=== PATIENT | female | born 1970 | race Two or more races ===

== ENCOUNTER 2017-08-14 16:36 | Inpatient (IN) | payer OTHER ==
[~2017-08-14] VITALS: Ht 152.4 cm; Wt 70.8 kg
[2017-08-14] MEDS ORDERED: HEPARIN SODIUM (PORCINE) 5000 UNITS/ML 1ML VIAL IV ONE (21:00)
[2017-08-14] MEDS ORDERED: SODIUM CHLORIDE 0.9% 1,000 ML IV ONE (21:00)
[2017-08-14 21:28] LABS: Basophils # (auto) 0 uL; Basophils % (auto) 0.3 % (0.0-2.0); Eosinophils # (auto) 0.2 uL; Hematocrit 36.3 % (36.0-46.0); Lymphocytes # (auto) 2.1 uL; Lymphocytes % (auto) 26.6 % (10.0-50.0); Mean Corpuscular Hemoglobin 28.4 pg (28.0-32.0); Mean Corpuscular Volume 86.1 fL (80.0-100.0); Monocytes # (auto) 0.8 uL; Neutrophils # (auto) 4.8 uL; Neutrophils % (auto) 60.1 % (37.0-80.0); Nucleated Red Blood Cells % 0.1 %; Platelet Count (auto) 265 10^3/uL (140-450); Red Blood Cells 4.21 10^6/uL (4.0-5.20); Red Cell Distribution Width 12.4 % (11.8-14.3)
[2017-08-14 21:38] LABS: Albumin 2.6 g/dL (3.4-5.0); BUN/Creatinine Ratio 18.8; Bilirubin, Total 0.4 mg/dL (0.2-1.0); Calcium 7.3 mg/dL (8.5-10.1); Potassium 3.5 mmol/L (3.5-5.1); Total Protein 6.7 g/dL (6.4-8.2)
[2017-08-14 21:46] LABS: INR 0.9 (0.9-1.15); Partial Thromboplastin Time 27.3 sec (22.64-33.71); Prothrombin Time 9.8 sec (9.37-12.3)
[2017-08-14] MEDS ORDERED: IOHEXOL 350 MG/ML 100ML IJ ONE (23:42)
[2017-08-15] VITALS (8 sets, daily range): BP systolic 99–136; BP diastolic 62–89
[2017-08-15] MEDS ORDERED: MORPHINE SULF INJ 2 MG/ML SYRINGE 1ML IV PRN
[2017-08-15] MEDS ORDERED: ACETAMINOPHEN 500 MG TAB PO PRN
[2017-08-15] MEDS ORDERED: ONDANSETRON HCL 4 MG/2 ML VIAL ONE (00:41)
[2017-08-15] MEDS: HYDROcodone-ACET 5/325MG TAB PO PRN ×3 (00:58→18:58)
[2017-08-15] MEDS ORDERED: ONDANSETRON HCL 4 MG/2 ML VIAL IV ONE (01:00)
[2017-08-15] MEDS: HEPARIN DRIP/D5W 100UNITS/ML 250 ML IV SCH ×2 (03:11→21:33)
[2017-08-15] MEDS ORDERED: CEPH750C6 PO (04:24)
[2017-08-15] MEDS ORDERED: CYCL1TAB18 PO (04:28)
[2017-08-15] MEDS ORDERED: HYDR-4683 PO (04:28)
[2017-08-15] MEDS ORDERED: DOCU-94 PO (04:28)
[2017-08-15] MEDS ORDERED: TRIA0.25 PO (04:29)
[2017-08-15 06:44] LABS: BUN/Creatinine Ratio 21.2; Potassium 3.4 mmol/L (3.5-5.1)
[2017-08-15 07:29] LABS: Basophils # (auto) 0 uL; Basophils % (auto) 0.4 % (0.0-2.0); Eosinophils # (auto) 0.3 uL; Eosinophils % (auto) 3.7 % (0.0-7.0); Hematocrit 32.8 % (36.0-46.0); Hemoglobin 10.7 g/dL (12.2-16.2); Lymphocytes # (auto) 2.3 uL; Lymphocytes % (auto) 32.8 % (10.0-50.0); Mean Corpuscular Hemoglobin 28.4 pg (28.0-32.0); Mean Corpuscular Hgb Conc. 32.6 g/dL (32.0-36.0); Mean Corpuscular Volume 87.2 fL (80.0-100.0); Monocytes # (auto) 0.7 uL; Monocytes % (auto) 9.8 % (0.0-12.0); Neutrophils # (auto) 3.7 uL; Neutrophils % (auto) 53.3 % (37.0-80.0); Nucleated Red Blood Cells % 0.1 %; Platelet Count (auto) 232 10^3/uL (140-450); Red Blood Cells 3.76 10^6/uL (4.0-5.20); Red Cell Distribution Width 12.6 % (11.8-14.3)
[2017-08-15 07:44] LABS: INR 0.97 (0.9-1.15); Prothrombin Time 10.6 sec (9.37-12.3)
[2017-08-15 09:26] LABS: INR 0.95 (0.9-1.15); Partial Thromboplastin Time 69.3 sec (22.64-33.71); Prothrombin Time 10.3 sec (9.37-12.3)
[2017-08-15] MEDS ORDERED: APIXABAN 5 MG TAB PO SCH (10:00)
[2017-08-15] MEDS ORDERED: CEPHALEXIN 250 MG CAP PO ONE (12:00)
[2017-08-15 15:26] LABS: INR 0.93 (0.9-1.15); Partial Thromboplastin Time 63.6 sec (22.64-33.71); Prothrombin Time 10.1 sec (9.37-12.3)
[2017-08-15] MEDS: PANTOPRAZOLE 40 MG TAB PO SCH (16:26)
[2017-08-15] MEDS: DOCUSATE SOD 100 MG CAP PO SCH (16:27)
[2017-08-15] MEDS: CYCLOBENZAPRINE HCL 10 MG TAB PO PRN (16:27)
[2017-08-15 21:26] LABS: INR 0.95 (0.9-1.15); Prothrombin Time 10.3 sec (9.37-12.3)
[2017-08-15] MEDS: CEPHALEXIN 250 MG CAP PO SCH (21:43)
[2017-08-16] MEDS: CEPHALEXIN 250 MG CAP PO SCH ×3 (05:31→21:26)
[2017-08-16 05:35] VITALS: BP 101/61
[2017-08-16 08:00] VITALS: BP 123/78
[2017-08-16 08:28] LABS: BUN/Creatinine Ratio 13.8; Basophils # (auto) 0 uL; Basophils % (auto) 0.4 % (0.0-2.0); Calcium 8.6 mg/dL (8.5-10.1); Eosinophils # (auto) 0.2 uL; Hematocrit 35.7 % (36.0-46.0); Hemoglobin 11.9 g/dL (12.2-16.2); Lymphocytes # (auto) 1.9 uL; Lymphocytes % (auto) 25.4 % (10.0-50.0); Magnesium 2.5 mg/dL (1.6-2.6); Mean Corpuscular Hemoglobin 28.6 pg (28.0-32.0); Mean Corpuscular Hgb Conc. 33.3 g/dL (32.0-36.0); Mean Corpuscular Volume 85.8 fL (80.0-100.0); Monocytes # (auto) 0.6 uL; Monocytes % (auto) 8.4 % (0.0-12.0); Neutrophils # (auto) 4.7 uL; Neutrophils % (auto) 62.8 % (37.0-80.0); Platelet Count (auto) 303 10^3/uL (140-450); Potassium 3.8 mmol/L (3.5-5.1); Red Blood Cells 4.16 10^6/uL (4.0-5.20); Red Cell Distribution Width 12.4 % (11.8-14.3); White Blood Cell 7.5 10^3/uL (4.4-10.8)
[2017-08-16 08:47] LABS: INR 0.95 (0.9-1.15); Prothrombin Time 10.4 sec (9.37-12.3)
[2017-08-16 08:59] LABS: Partial Thromboplastin Time 101.8 sec (22.64-33.71)
[2017-08-16 09:03] VITALS: BP 123/78
[2017-08-16] MEDS: CYCLOBENZAPRINE HCL 10 MG TAB PO PRN (09:17)
[2017-08-16] MEDS: PANTOPRAZOLE 40 MG TAB PO SCH (09:17)
[2017-08-16] MEDS: DOCUSATE SOD 100 MG CAP PO SCH ×2 (09:17→21:26)
[2017-08-16 11:00] LABS: Urine Bacteria NONE SEEN /hpf (None Seen); Urine Blood Negative /uL (Negative); Urine Specific Gravity 1.004 (1.001-1.035); Urine WBC 1 /hpf (0 - 5)
[2017-08-16 15:35] LABS: INR 0.95 (0.9-1.15); Partial Thromboplastin Time 41.8 sec (22.64-33.71); Prothrombin Time 10.3 sec (9.37-12.3)
[2017-08-16 17:00] VITALS: BP 131/89
[2017-08-16] MEDS ORDERED: HEPARIN DRIP/D5W 100UNITS/ML 250 ML IV SCH (17:00)
[2017-08-16 22:00] VITALS: BP 116/75
[2017-08-17 05:00] VITALS: BP 116/73
[2017-08-17] MEDS: CEPHALEXIN 250 MG CAP PO SCH (05:34)
[2017-08-17 06:46] LABS: Basophils # (auto) 0 uL; Basophils % (auto) 0.6 % (0.0-2.0); Eosinophils # (auto) 0.2 uL; Eosinophils % (auto) 3.2 % (0.0-7.0); Hematocrit 34.5 % (36.0-46.0); Hemoglobin 11.4 g/dL (12.2-16.2); Lymphocytes # (auto) 2.1 uL; Lymphocytes % (auto) 30.7 % (10.0-50.0); Mean Corpuscular Hemoglobin 28.4 pg (28.0-32.0); Mean Corpuscular Hgb Conc. 33.2 g/dL (32.0-36.0); Mean Corpuscular Volume 85.7 fL (80.0-100.0); Monocytes # (auto) 0.6 uL; Monocytes % (auto) 9.4 % (0.0-12.0); Neutrophils # (auto) 3.8 uL; Neutrophils % (auto) 56.1 % (37.0-80.0); Platelet Count (auto) 288 10^3/uL (140-450); Red Blood Cells 4.03 10^6/uL (4.0-5.20); Red Cell Distribution Width 12.5 % (11.8-14.3); White Blood Cell 6.8 10^3/uL (4.4-10.8)
[2017-08-17 07:00] LABS: INR 0.96 (0.9-1.15); Partial Thromboplastin Time 59.7 sec (22.64-33.71); Prothrombin Time 10.5 sec (9.37-12.3)
[2017-08-17 07:02] LABS: Calcium 8.4 mg/dL (8.5-10.1); Magnesium 2.5 mg/dL (1.6-2.6); Potassium 3.6 mmol/L (3.5-5.1)
[2017-08-17 09:00] VITALS: BP 141/93
[2017-08-17] MEDS: DOCUSATE SOD 100 MG CAP PO SCH (09:43)
[2017-08-17] MEDS: PANTOPRAZOLE 40 MG TAB PO SCH (09:43)
[2017-08-17 10:02] VITALS: BP 130/75
[2017-08-17] MEDS ORDERED: RIVAROXABAN 15 MG TAB PO ONE (10:15)
[2017-08-17 13:00] VITALS: BP 149/87
[2017-08-22] MEDS ORDERED: APIXABAN 5 MG TAB PO SCH (10:00)
== END 2017-08-17 14:00 | disposition home or self-care (01) | DRG 299 ==
LOC: ER 16:36 → OVERFLOW 16:37 → WEST WING 08-15 01:42
PROVIDERS: ADMIT Nurse Practitioner Family; ATTEND Internal Medicine
DX: I82.412 Acute embolism and thrombosis of left femoral vein (principal); I26.99 Other pulmonary embolism without acute cor pulmonale; E66.01 Morbid (severe) obesity due to excess calories; I82.432 Acute embolism and thrombosis of left popliteal vein; I82.442 Acute embolism and thrombosis of left tibial vein; Z68.30 Body mass index [BMI] 30.0-30.9, adult; Z98.51 Tubal ligation status
CPT/HCPCS: 36415; 71045; 71275; 80048; 80053; 81001; 83735; 85025; 85610; 85730; 93971; 96374; J2405

== ENCOUNTER 2021-09-17 17:45 | Inpatient (IN) | payer OTHER ==
[~2021-09-17] VITALS: Ht 152.4 cm; Wt 72.1 kg
[~2021-09-17 17:45] MED LIST: CEPH750C6 PO; CYCL-839 PO; DOCU-94 PO; HYDR-4833 PO; TRIA0.25 PO
[2021-09-17] MEDS ORDERED: SODIUM CHLORIDE 0.9% 500 ML IVB ONE (19:00)
[2021-09-17] MEDS ORDERED: MORPHINE SULFATE 4 MG/ML SYR/VIAL IV ONE (19:00)
[2021-09-17] MEDS ORDERED: ONDANSETRON HCL 4 MG/2 ML VIAL IV ONE (19:00)
[2021-09-17 19:54] LABS: Basophils # (auto) 0 10 ^3/uL (0-0.2); Basophils % (auto) 0.3 % (0.0-2.0); Eosinophils # (auto) 0.1 10 ^3/uL (0-0.8); Eosinophils % (auto) 1.4 % (0.0-7.0); Hematocrit 39.3 % (36.0-46.0); Hemoglobin 13.5 g/dL (12.2-16.2); Lymphocytes # (auto) 3.3 10 ^3/uL (0.4-5.4); Lymphocytes % (auto) 34.3 % (10.0-50.0); Mean Corpuscular Hemoglobin 29.2 pg (28.0-32.0); Mean Corpuscular Hgb Conc. 34.4 g/dL (32.0-36.0); Mean Corpuscular Volume 84.9 fL (80.0-100.0); Monocytes # (auto) 0.7 10 ^3/uL (0-1.3); Monocytes % (auto) 7.3 % (0.0-12.0); Neutrophils # (auto) 5.4 10 ^3/uL (1.6-8.6); Neutrophils % (auto) 56.7 % (37.0-80.0); Red Blood Cells 4.63 10^6/uL (4.0-5.20); Red Cell Distribution Width 12.7 % (11.8-14.3); White Blood Cell 9.5 10^3/uL (4.4-10.8)
[2021-09-17 19:57] LABS: Albumin 3.7 g/dL (3.4-5.0); Calcium 8.9 mg/dL (8.5-10.1); Potassium 3.7 mmol/L (3.5-5.1)
[2021-09-17 20:01] LABS: BUN/Creatinine Ratio 24.6; Bilirubin, Total 0.3 mg/dL (0.2-1.0); Total Protein 8.2 g/dL (6.4-8.2)
[2021-09-17 22:36] LABS: Urine Bacteria NONE SEEN /hpf (None Seen); Urine Blood Negative /uL (Negative); Urine Specific Gravity 1.013 (1.001-1.035); Urine WBC 2 /hpf (0 - 5)
[2021-09-17] MEDS ORDERED: ONDANSETRON HCL 4 MG/2 ML VIAL IV PRN (23:15)
[2021-09-17] MEDS ORDERED: IBUPROFEN 600 MG TAB PO PRN (23:15)
[2021-09-17] MEDS ORDERED: MORPHINE SULFATE 4 MG/ML SYR/VIAL IV PRN (23:15)
[2021-09-17] MEDS ORDERED: DOCUSATE SOD 100 MG CAP PO PRN (23:15)
[2021-09-17] MEDS ORDERED: ACETAMINOPHEN/CODEINE#3 (300/30mg) TAB PO PRN (23:15)
[2021-09-18] MEDS: SODIUM CHLORIDE 0.9% 1,000 ML IV SCH ×3 (00:53→15:55)
[2021-09-18 03:01] VITALS: BP 128/75
[2021-09-18 08:35] VITALS: BP 117/66
[2021-09-18 09:32] LABS: Basophils # (auto) 0 10 ^3/uL (0-0.2); Basophils % (auto) 0.6 % (0.0-2.0); Eosinophils # (auto) 0.1 10 ^3/uL (0-0.8); Eosinophils % (auto) 1.3 % (0.0-7.0); Hematocrit 37.6 % (36.0-46.0); Hemoglobin 12.8 g/dL (12.2-16.2); Lymphocytes # (auto) 1.6 10 ^3/uL (0.4-5.4); Lymphocytes % (auto) 34.1 % (10.0-50.0); Mean Corpuscular Hemoglobin 29.3 pg (28.0-32.0); Mean Corpuscular Hgb Conc. 34.1 g/dL (32.0-36.0); Mean Corpuscular Volume 85.8 fL (80.0-100.0); Monocytes # (auto) 0.3 10 ^3/uL (0-1.3); Monocytes % (auto) 5.8 % (0.0-12.0); Neutrophils # (auto) 2.8 10 ^3/uL (1.6-8.6); Neutrophils % (auto) 58.2 % (37.0-80.0); Red Blood Cells 4.38 10^6/uL (4.0-5.20); Red Cell Distribution Width 12.4 % (11.8-14.3); White Blood Cell 4.8 10^3/uL (4.4-10.8)
[2021-09-18 09:46] LABS: Albumin 3.1 g/dL (3.4-5.0); Calcium 8.5 mg/dL (8.5-10.1); Potassium 3.3 mmol/L (3.5-5.1)
[2021-09-18 09:50] LABS: BUN/Creatinine Ratio 21.6; Bilirubin, Total 0.5 mg/dL (0.2-1.0); Total Protein 6.8 g/dL (6.4-8.2)
[2021-09-18] MEDS ORDERED: ENOXAPARIN SOD 40 MG/0.4 ML SYRINGE SC SCH (10:00)
[2021-09-18] MEDS ORDERED: FAMOTIDINE 20 MG TAB PO SCH (10:00)
[2021-09-18 12:11] VITALS: BP_SYST 111; BP_SYST 130; BP_DIAS 71; BP_DIAS 88
[2021-09-18] MEDS ORDERED: POTASSIUM CHL 20 Meq TABLET PO ONE (13:45)
[2021-09-18 16:58] VITALS: BP 136/73
[2021-09-18] MEDS ORDERED: PROBCAP9 OR (17:13)
[2021-09-18] MEDS ORDERED: OMEP-434 PO (17:13)
== END 2021-09-18 19:25 | disposition home or self-care (01) | DRG 395 ==
LOC: ER 17:45 → OVERFLOW 23:05 → WEST WING 09-18 02:03
PROVIDERS: ADMIT Internal Medicine; ATTEND Internal Medicine
DX: K63.89 Other specified diseases of intestine (principal); Z20.822 Contact with and (suspected) exposure to COVID-19; Z98.51 Tubal ligation status; Z82.49 Family history of ischemic heart disease and other diseases of the circulatory system
CPT/HCPCS: 36415; 74176; 80053; 81001; 82150; 83690; 85025; 87426; 96361; 96374; 96375; G0378; J2405